=== PATIENT | male | born 1940 | race Caucasian/White ===

== ENCOUNTER 2017-12-22 01:14 | Inpatient (IN) | payer MEDICARE, OTHER ==
[2017-12-22 02:02] LABS: ADD MAN DIFF? NO
[2017-12-22 02:05] LABS: ABNORMAL IP MESSAGE 1; BASOPHILS % 0.1 % (0.0-2.0); EOSINOPHILS % 0.1 % (0.0-7.0); HEMOGLOBIN 8.7 g/dl (14.0-18.0); LYMPHOCYTES # 1.3 10^3/ul (0.8-2.9); LYMPHOCYTES % 16.5 % (15.0-51.0); MEAN CORPUSCULAR HEMOGLOBIN 28.9 pg (29.0-33.0); MEAN CORPUSCULAR HGB CONC 34.8 g/dl (32.0-37.0); MEAN CORPUSCULAR VOLUME 83.1 fl (82.0-101.0); MONOCYTES % 13.1 % (0.0-11.0); NEUTROPHIL # 5.1 10^3/ul (1.6-7.5); NEUTROPHILS % 66.9 % (39.0-77.0); PLATELET COUNT 64 10^3/UL (140-415); POSITIVE DIFF @See below; RED BLOOD COUNT 3.01 10^6/ul (4.70-6.10)
[2017-12-22 02:05] LABS: WHITE BLOOD COUNT 7.6 10^3/ul (4.8-10.8)
[2017-12-22 02:20] LABS: ALANINE AMINOTRANSFERASE 11 IU/L (13-69); ALBUMIN 4.3 g/dl (3.3-4.9); ALBUMIN/GLOBULIN RATIO 1.48; ALKALINE PHOSPHATASE 33 IU/L (42-121); ANION GAP 15 (8-16); ASPARTATE AMINO TRANSFERASE 17 IU/L (15-46); BILIRUBIN,INDIRECT 0.2 mg/dl (0-1.1); BILIRUBIN,TOTAL 0.2 mg/dl (0.2-1.3); BLOOD UREA NITROGEN 32 mg/dl (7-20); CALCIUM 9.9 mg/dl (8.4-10.2); CARBON DIOXIDE 21 mmol/L (21-31); CHLORIDE 107 mmol/L (97-110); CREATININE 3.43 mg/dl (0.61-1.24); GLUCOSE 160 mg/dl (70-220); LIPASE 77 U/L (23-300); POTASSIUM 3.3 mmol/L (3.5-5.1); SODIUM 140 mmol/L (135-144); TOTAL PROTEIN 7.2 g/dl (6.1-8.1)
[2017-12-22 02:23] LABS: INR 1.24; PARTIAL THROMBOPLASTIN TIME 31.5 Sec (25.0-35.0); PROTIME 15.8 Sec (11.9-14.9); PT RATIO 1.2
[2017-12-22 02:32] LABS: B-TYPE NATRIURETIC PEPTIDE 5380 PG/ML (0-450); TROPONIN-I 0.058 ng/ml (0.000-0.120)
[2017-12-22] MEDS: ACETAMINOPHEN 325 MG TAB PO (03:09)
[2017-12-22] MEDS: SOD CHLORIDE 0.9% 1,000 ML IV ×2 (06:29→19:49)
[2017-12-22] MEDS ORDERED: NACL 0.9% 3 ML SYG IV (06:30)
[2017-12-22] MEDS ORDERED: BISACODYL (EC) 5 MG TAB PO (06:30)
[2017-12-22] MEDS ORDERED: ONDANSETRON 4 MG INJ IV (06:30)
[2017-12-22] MEDS ORDERED: DOCUSATE SODIUM 100 MG CAP PO (06:30)
[2017-12-22] MEDS ORDERED: DEXTROSE 50% 50 ML SYRINGE IV (07:00)
[2017-12-22] MEDS ORDERED: GLUCOSE GEL 15 GRAM TUBE PO ×2 (07:00)
[2017-12-22] MEDS ORDERED: GLUCAGON 1 MG INJ IM (07:00)
[2017-12-22 07:54] LABS: HEMOGLOBIN A1C 7.5 % (0-5.9)
[2017-12-22 08:03] LABS: CREATINE KINASE 136 IU/L (23-200)
[2017-12-22 08:06] LABS: CHOL/HDL RATIO 3.8 RATIO; CHOLESTEROL 127 mg/dl (100-200); HDL CHOLESTEROL 33 mg/dl (31-75); LDL CHOLESTEROL,CALCULATED 59 mg/dl; TRIGLYCERIDES 175 mg/dl (0-149)
[2017-12-22 08:06] LABS: MAGNESIUM 1.5 mg/dl (1.7-2.5)
[2017-12-22] MEDS: CALCITRIOL 0.25 MCG CAP PO (08:12)
[2017-12-22] MEDS: ISOSORBIDE MONONITRATE(SR)60 MG TAB PO (08:12)
[2017-12-22 08:13] LABS: CK INDEX 4.6; CK-MB 6.25 ng/ml (0.0-2.4)
[2017-12-22] MEDS: FENOFIBRATE 145 MG TAB PO (08:13)
[2017-12-22] MEDS: ASPIRIN (EC) 81 MG TAB PO (08:13)
[2017-12-22] MEDS: FINASTERIDE 5 MG TAB PO (08:13)
[2017-12-22] MEDS: FERROUS SULFATE (EC) 325 MG TAB PO ×2 (08:13→23:25)
[2017-12-22] MEDS: RANOLAZINE (SR) 500 MG TAB PO ×2 (08:13→23:26)
[2017-12-22] MEDS: DOCUSATE SODIUM 100 MG CAP PO ×2 (08:13→23:25)
[2017-12-22] MEDS: INSULIN ASPART [NOVOLOG] 3 ML PEN SC ×4 (08:14→23:32)
[2017-12-22] MEDS: EZETIMIBE 10 MG TAB PO (08:14)
[2017-12-22] MEDS: METOPROLOL 25 MG TAB PO ×2 (08:14→21:00)
[2017-12-22] MEDS: AMLODIPINE 5 MG TAB PO ×2 (08:14→23:26)
[2017-12-22] MEDS: PANTOPRAZOLE (EC) 40 MG TAB PO (08:14)
[2017-12-22] MEDS ORDERED: NON-FORMULARY/PATIENT OWN MED (Esomeprazole Mag Trihydrate (Nexium) 40 MG) PO (09:00)
[2017-12-22 10:57] LABS: ADD MAN DIFF? NO
[2017-12-22] MEDS: POTASSIUM CHLORIDE (SR) 20 MEQ TAB PO ×2 (10:58→13:36)
[2017-12-22] MEDS ORDERED: HEPARIN 1000 UNITS/ML 10 ML INJ IV (11:00)
[2017-12-22 11:03] LABS: ABNORMAL IP MESSAGE 1; BASOPHILS % 0.2 % (0.0-2.0); HEMATOCRIT 25.9 % (42.0-52.0); IMMATURE GRANS #M 0.39 10^3/ul; IMMATURE GRANS % (M) 4.4 %; LYMPHOCYTES # 1.4 10^3/ul (0.8-2.9); LYMPHOCYTES % 16.1 % (15.0-51.0); MEAN CORPUSCULAR HEMOGLOBIN 28.9 pg (29.0-33.0); MEAN CORPUSCULAR HGB CONC 34.7 g/dl (32.0-37.0); MEAN CORPUSCULAR VOLUME 83.3 fl (82.0-101.0); MONOCYTE # 1.2 10^3/ul (0.3-0.9); MONOCYTES % 12.9 % (0.0-11.0); NEUTROPHIL # 5.9 10^3/ul (1.6-7.5); NEUTROPHILS % 66.4 % (39.0-77.0); POSITIVE DIFF @See below; RED BLOOD COUNT 3.11 10^6/ul (4.70-6.10); RED CELL DISTRIBUTION WIDTH 23.4 % (11.5-14.5)
[2017-12-22 11:03] LABS: WHITE BLOOD COUNT 8.9 10^3/ul (4.8-10.8)
[2017-12-22 11:05] LABS: PLATELET COUNT 53 10^3/UL (140-415)
[2017-12-22] MEDS: morphine 2 MG INJ IV (11:14)
[2017-12-22] MEDS: HEPARIN 1000 UNITS/ML 10 ML INJ IV (11:16)
[2017-12-22 11:21] LABS: CREATINE KINASE 223 IU/L (23-200)
[2017-12-22] MEDS: HEPARIN 25000 UNITS/250 ML 250 ML IV (11:21)
[2017-12-22 11:23] LABS: INR 1.17; PROTIME 15.1 Sec (11.9-14.9); PT RATIO 1.2
[2017-12-22 11:24] LABS: PARTIAL THROMBOPLASTIN TIME 31.1 Sec (25.0-35.0)
[2017-12-22 11:34] LABS: CK INDEX 6.3
[2017-12-22] MEDS: MAGNESIUM SULFATE 3 GM in DEXTROSE 5% 100 ML IVPB (12:23)
[2017-12-22 18:21] LABS: CREATINE KINASE 243 IU/L (23-200)
[2017-12-22 18:31] LABS: PARTIAL THROMBOPLASTIN TIME 145.9 Sec (25.0-35.0)
[2017-12-22 18:33] LABS: CK INDEX 7.2
[2017-12-22 22:44] LABS: CREATINE KINASE 249 IU/L (23-200)
[2017-12-22 22:58] LABS: CK INDEX 5.8
[2017-12-22] MEDS: TAMSULOSIN (SR) 0.4 MG CAP PO (23:25)
[2017-12-22] MEDS: ATORVASTATIN 40 MG TAB PO (23:25)
[2017-12-23] MEDS: INSULIN ASPART [NOVOLOG] 3 ML PEN SC ×6 (01:00→20:52)
[2017-12-23] MEDS: hydrALAzine 20 MG INJ IV (01:10)
[2017-12-23 01:29] LABS: PARTIAL THROMBOPLASTIN TIME 48.6 Sec (25.0-35.0)
[2017-12-23] MEDS ORDERED: ACCU-CHEK XX (02:00)
[2017-12-23] MEDS: morphine LIQ (10 MG/5 ML) CUP PO ×2 (04:44→15:33)
[2017-12-23] MEDS: NITROGLYCERIN (SL) 0.4 MG TAB SL (05:04)
[2017-12-23] MEDS: PANTOPRAZOLE (EC) 40 MG TAB PO (06:00)
[2017-12-23] MEDS: SOD CHLORIDE 0.9% 1,000 ML IV (06:48)
[2017-12-23] MEDS: RANOLAZINE (SR) 500 MG TAB PO ×2 (08:25→20:18)
[2017-12-23] MEDS: AMLODIPINE 5 MG TAB PO ×2 (08:25→20:19)
[2017-12-23] MEDS: EZETIMIBE 10 MG TAB PO (08:25)
[2017-12-23] MEDS: METOPROLOL 25 MG TAB PO ×2 (08:26→21:00)
[2017-12-23] MEDS: ISOSORBIDE MONONITRATE(SR)60 MG TAB PO (08:26)
[2017-12-23] MEDS: FERROUS SULFATE (EC) 325 MG TAB PO ×2 (08:26→20:19)
[2017-12-23] MEDS: FINASTERIDE 5 MG TAB PO (08:26)
[2017-12-23] MEDS: DOCUSATE SODIUM 100 MG CAP PO ×2 (08:27→20:19)
[2017-12-23] MEDS: ASPIRIN (EC) 81 MG TAB PO (08:27)
[2017-12-23] MEDS: CALCITRIOL 0.25 MCG CAP PO (08:27)
[2017-12-23 09:19] LABS: ADD MAN DIFF? NO
[2017-12-23 09:30] LABS: WHITE BLOOD COUNT 8.7 10^3/ul (4.8-10.8)
[2017-12-23 09:30] LABS: ABNORMAL IP MESSAGE 1; BASOPHILS % 0.3 % (0.0-2.0); EOSINOPHILS % 0.1 % (0.0-7.0); HEMATOCRIT 28.4 % (42.0-52.0); HEMOGLOBIN 9.6 g/dl (14.0-18.0); IMMATURE GRANS #M 0.28 10^3/ul; IMMATURE GRANS % (M) 3.2 %; LYMPHOCYTES # 1.6 10^3/ul (0.8-2.9); LYMPHOCYTES % 18.6 % (15.0-51.0); MEAN CORPUSCULAR HEMOGLOBIN 28.3 pg (29.0-33.0); MEAN CORPUSCULAR HGB CONC 33.8 g/dl (32.0-37.0); MEAN CORPUSCULAR VOLUME 83.8 fl (82.0-101.0); MONOCYTE # 1.3 10^3/ul (0.3-0.9); MONOCYTES % 15.1 % (0.0-11.0); NEUTROPHIL # 5.4 10^3/ul (1.6-7.5); NEUTROPHILS % 62.7 % (39.0-77.0); PLATELET COUNT 63 10^3/UL (140-415); POSITIVE DIFF @See below; RED BLOOD COUNT 3.39 10^6/ul (4.70-6.10); RED CELL DISTRIBUTION WIDTH 23.5 % (11.5-14.5)
[2017-12-23 09:54] LABS: PARTIAL THROMBOPLASTIN TIME 64.2 Sec (25.0-35.0)
[2017-12-23 09:59] LABS: ANION GAP 16 (8-16); BLOOD UREA NITROGEN 29 mg/dl (7-20); CALCIUM 9.8 mg/dl (8.4-10.2); CARBON DIOXIDE 20 mmol/L (21-31); CHLORIDE 111 mmol/L (97-110); GLUCOSE 96 mg/dl (70-220); POTASSIUM 4.1 mmol/L (3.5-5.1); SODIUM 143 mmol/L (135-144)
[2017-12-23] MEDS: HEPARIN 25000 UNITS/250 ML 250 ML IV ×2 (10:29→17:22)
[2017-12-23 10:43] LABS: MAGNESIUM 2.1 mg/dl (1.7-2.5)
[2017-12-23 17:12] LABS: PARTIAL THROMBOPLASTIN TIME 55.7 Sec (25.0-35.0)
[2017-12-23] MEDS: TAMSULOSIN (SR) 0.4 MG CAP PO (20:18)
[2017-12-23] MEDS: ATORVASTATIN 40 MG TAB PO (20:19)
[2017-12-23 23:45] LABS: PARTIAL THROMBOPLASTIN TIME 58.1 Sec (25.0-35.0)
[2017-12-24] MEDS: INSULIN ASPART [NOVOLOG] 3 ML PEN SC ×6 (01:00→20:48)
[2017-12-24] MEDS: HALOPERIDOL 5 MG INJ IV (02:47)
[2017-12-24] MEDS: PANTOPRAZOLE (EC) 40 MG TAB PO (05:48)
[2017-12-24 07:11] LABS: ADD MAN DIFF? NO
[2017-12-24 07:14] LABS: WHITE BLOOD COUNT 7.9 10^3/ul (4.8-10.8)
[2017-12-24 07:14] LABS: ABNORMAL IP MESSAGE 1; BASOPHILS % 0.3 % (0.0-2.0); EOSINOPHILS % 0.1 % (0.0-7.0); HEMATOCRIT 26.7 % (42.0-52.0); HEMOGLOBIN 9.1 g/dl (14.0-18.0); IMMATURE GRANS #M 0.19 10^3/ul; IMMATURE GRANS % (M) 2.4 %; LYMPHOCYTES # 1.5 10^3/ul (0.8-2.9); LYMPHOCYTES % 18.9 % (15.0-51.0); MEAN CORPUSCULAR HEMOGLOBIN 28.8 pg (29.0-33.0); MEAN CORPUSCULAR HGB CONC 34.1 g/dl (32.0-37.0); MEAN CORPUSCULAR VOLUME 84.5 fl (82.0-101.0); MONOCYTE # 1.4 10^3/ul (0.3-0.9); MONOCYTES % 17.5 % (0.0-11.0); NEUTROPHIL # 4.8 10^3/ul (1.6-7.5); NEUTROPHILS % 60.8 % (39.0-77.0); PLATELET COUNT 60 10^3/UL (140-415); POSITIVE DIFF @See below; RED BLOOD COUNT 3.16 10^6/ul (4.70-6.10); RED CELL DISTRIBUTION WIDTH 23.2 % (11.5-14.5)
[2017-12-24 07:29] LABS: ANION GAP 15 (8-16); BLOOD UREA NITROGEN 33 mg/dl (7-20); CALCIUM 9.7 mg/dl (8.4-10.2); CARBON DIOXIDE 22 mmol/L (21-31); CHLORIDE 105 mmol/L (97-110); GLUCOSE 108 mg/dl (70-220); POTASSIUM 4.6 mmol/L (3.5-5.1); SODIUM 137 mmol/L (135-144)
[2017-12-24 07:49] LABS: PARTIAL THROMBOPLASTIN TIME 88.9 Sec (25.0-35.0)
[2017-12-24] MEDS: HEPARIN 25000 UNITS/250 ML 250 ML IV (07:56)
[2017-12-24] MEDS: FINASTERIDE 5 MG TAB PO (08:38)
[2017-12-24] MEDS: METOPROLOL 25 MG TAB PO ×2 (08:38→20:47)
[2017-12-24] MEDS: AMLODIPINE 5 MG TAB PO ×2 (08:38→20:48)
[2017-12-24] MEDS: ISOSORBIDE MONONITRATE(SR)60 MG TAB PO (08:39)
[2017-12-24] MEDS: EZETIMIBE 10 MG TAB PO (08:39)
[2017-12-24] MEDS: DOCUSATE SODIUM 100 MG CAP PO ×2 (08:39→20:48)
[2017-12-24] MEDS: FERROUS SULFATE (EC) 325 MG TAB PO ×2 (08:39→20:47)
[2017-12-24] MEDS: RANOLAZINE (SR) 500 MG TAB PO ×2 (08:39→20:47)
[2017-12-24] MEDS: CALCITRIOL 0.25 MCG CAP PO (08:39)
[2017-12-24] MEDS: ASPIRIN (EC) 81 MG TAB PO (08:41)
[2017-12-24] MEDS: ACETAMINOPHEN 325 MG TAB PO (12:03)
[2017-12-24] MEDS: morphine LIQ (10 MG/5 ML) CUP PO (15:14)
[2017-12-24 15:44] LABS: PARTIAL THROMBOPLASTIN TIME 32.6 Sec (25.0-35.0)
[2017-12-24] MEDS: ATORVASTATIN 40 MG TAB PO (20:48)
[2017-12-24] MEDS: TAMSULOSIN (SR) 0.4 MG CAP PO (20:48)
[2017-12-24] MEDS: QUETIAPINE 25 MG TAB PO (23:18)
[2017-12-24] MEDS ORDERED: QUETIAPINE 25 MG TAB GTB (23:30)
[2017-12-25] MEDS: INSULIN ASPART [NOVOLOG] 3 ML PEN SC ×6 (01:00→20:19)
[2017-12-25] MEDS: SOD CHLORIDE 0.9% 1,000 ML IV ×3 (01:02→22:54)
[2017-12-25] MEDS: HALOPERIDOL 5 MG INJ IV ×2 (04:35→05:37)
[2017-12-25] MEDS: PANTOPRAZOLE (EC) 40 MG TAB PO (06:00)
[2017-12-25] MEDS: EZETIMIBE 10 MG TAB PO (08:24)
[2017-12-25] MEDS: AMLODIPINE 5 MG TAB PO ×2 (08:24→20:41)
[2017-12-25] MEDS: FINASTERIDE 5 MG TAB PO (08:24)
[2017-12-25] MEDS: ISOSORBIDE MONONITRATE(SR)60 MG TAB PO (08:24)
[2017-12-25] MEDS: DOCUSATE SODIUM 100 MG CAP PO ×2 (08:24→20:41)
[2017-12-25] MEDS: FERROUS SULFATE (EC) 325 MG TAB PO ×2 (08:25→20:41)
[2017-12-25] MEDS: ASPIRIN (EC) 81 MG TAB PO (08:25)
[2017-12-25] MEDS: CALCITRIOL 0.25 MCG CAP PO (08:25)
[2017-12-25] MEDS: METOPROLOL 25 MG TAB PO ×2 (08:25→20:42)
[2017-12-25] MEDS: RANOLAZINE (SR) 500 MG TAB PO ×2 (08:25→20:41)
[2017-12-25 10:32] LABS: ADD MAN DIFF? NO
[2017-12-25 10:35] LABS: WHITE BLOOD COUNT 13.8 10^3/ul (4.8-10.8)
[2017-12-25 10:35] LABS: ABNORMAL IP MESSAGE 1; BASOPHILS % 0.1 % (0.0-2.0); EOSINOPHILS % 0.1 % (0.0-7.0); HEMATOCRIT 25.6 % (42.0-52.0); HEMOGLOBIN 8.7 g/dl (14.0-18.0); IMMATURE GRANS #M 0.56 10^3/ul; IMMATURE GRANS % (M) 4.1 %; LYMPHOCYTES # 1.3 10^3/ul (0.8-2.9); LYMPHOCYTES % 9.2 % (15.0-51.0); MEAN CORPUSCULAR HEMOGLOBIN 28.6 pg (29.0-33.0); MEAN CORPUSCULAR VOLUME 84.2 fl (82.0-101.0); MONOCYTES % 21.8 % (0.0-11.0); NEUTROPHIL # 8.9 10^3/ul (1.6-7.5); NEUTROPHILS % 64.7 % (39.0-77.0); PLATELET COUNT 52 10^3/UL (140-415); POSITIVE DIFF @See below; RED BLOOD COUNT 3.04 10^6/ul (4.70-6.10); RED CELL DISTRIBUTION WIDTH 22.8 % (11.5-14.5)
[2017-12-25 11:00] LABS: MAGNESIUM 1.8 mg/dl (1.7-2.5)
[2017-12-25 11:00] LABS: ANION GAP 18 (8-16); BLOOD UREA NITROGEN 33 mg/dl (7-20); CALCIUM 10.1 mg/dl (8.4-10.2); CARBON DIOXIDE 19 mmol/L (21-31); CHLORIDE 105 mmol/L (97-110); CREATININE 3.27 mg/dl (0.61-1.24); GLUCOSE 88 mg/dl (70-220); POTASSIUM 4.2 mmol/L (3.5-5.1); SODIUM 138 mmol/L (135-144)
[2017-12-25] MEDS: REGADENOSON 0.4 MG/5 ML SYG (11:48)
[2017-12-25] MEDS: LORAZEPAM 2 MG INJ IV (17:34)
[2017-12-25] MEDS: ATORVASTATIN 40 MG TAB PO (20:40)
[2017-12-25] MEDS: TAMSULOSIN (SR) 0.4 MG CAP PO (20:40)
[2017-12-25] MEDS: QUETIAPINE 25 MG TAB PO (20:41)
[2017-12-25] MEDS ORDERED: QUETIAPINE 25 MG TAB GTB (21:00)
[2017-12-26] MEDS: INSULIN ASPART [NOVOLOG] 3 ML PEN SC ×6 (01:00→21:16)
[2017-12-26] MEDS: SOD CHLORIDE 0.9% 1,000 ML IV (02:39)
[2017-12-26] MEDS: GLUCOSE GEL 15 GRAM TUBE BUCCAL (05:37)
[2017-12-26] MEDS: DEXTROSE 50% 50 ML SYRINGE IV (05:50)
[2017-12-26] MEDS: PANTOPRAZOLE (EC) 40 MG TAB PO (05:56)
[2017-12-26] MEDS: DEXTROSE 5%-0.9% NACL 1,000 ML IV ×2 (07:00→20:26)
[2017-12-26] MEDS: FERROUS SULFATE (EC) 325 MG TAB PO ×2 (08:23→21:12)
[2017-12-26] MEDS: FINASTERIDE 5 MG TAB PO (08:23)
[2017-12-26] MEDS: DOCUSATE SODIUM 100 MG CAP PO ×2 (08:23→21:11)
[2017-12-26] MEDS: CALCITRIOL 0.25 MCG CAP PO (08:23)
[2017-12-26] MEDS: ASPIRIN (EC) 81 MG TAB PO (08:24)
[2017-12-26] MEDS: EZETIMIBE 10 MG TAB PO (08:24)
[2017-12-26] MEDS: RANOLAZINE (SR) 500 MG TAB PO ×2 (08:24→21:12)
[2017-12-26] MEDS: METOPROLOL 25 MG TAB PO ×2 (08:25→21:13)
[2017-12-26] MEDS: AMLODIPINE 5 MG TAB PO ×2 (08:25→21:12)
[2017-12-26] MEDS: ISOSORBIDE MONONITRATE(SR)60 MG TAB PO (08:26)
[2017-12-26] MEDS: LORAZEPAM 2 MG INJ IV (09:16)
[2017-12-26 09:33] LABS: ADD MAN DIFF? NO
[2017-12-26 09:39] LABS: ABNORMAL IP MESSAGE 1; BASOPHILS % 0.1 % (0.0-2.0); EOSINOPHILS % 0.1 % (0.0-7.0); HEMATOCRIT 24.5 % (42.0-52.0); HEMOGLOBIN 8.3 g/dl (14.0-18.0); IMMATURE GRANS #M 0.45 10^3/ul; IMMATURE GRANS % (M) 2.7 %; LYMPHOCYTES % 6.2 % (15.0-51.0); MEAN CORPUSCULAR HEMOGLOBIN 28.8 pg (29.0-33.0); MEAN CORPUSCULAR HGB CONC 33.9 g/dl (32.0-37.0); MEAN CORPUSCULAR VOLUME 85.1 fl (82.0-101.0); MONOCYTE # 4.8 10^3/ul (0.3-0.9); MONOCYTES % 28.6 % (0.0-11.0); NEUTROPHIL # 10.4 10^3/ul (1.6-7.5); NEUTROPHILS % 62.3 % (39.0-77.0); POSITIVE DIFF @See below; RED BLOOD COUNT 2.88 10^6/ul (4.70-6.10)
[2017-12-26 09:39] LABS: WHITE BLOOD COUNT 16.6 10^3/ul (4.8-10.8)
[2017-12-26 09:44] LABS: PLATELET COUNT 52 10^3/UL (140-415)
[2017-12-26 10:03] LABS: ANION GAP 15 (8-16); BLOOD UREA NITROGEN 42 mg/dl (7-20); CALCIUM 9.7 mg/dl (8.4-10.2); CARBON DIOXIDE 20 mmol/L (21-31); CHLORIDE 106 mmol/L (97-110); GLUCOSE 117 mg/dl (70-220); MAGNESIUM 1.9 mg/dl (1.7-2.5); POTASSIUM 4.2 mmol/L (3.5-5.1); SODIUM 137 mmol/L (135-144)
[2017-12-26 12:50] LABS: ADD UMIC YES; UR ASCORBIC ACID NEGATIVE (NEGATIVE); UR BACTERIA FEW /HPF (NONE SEEN); UR BILIRUBIN (Dip) NEGATIVE (NEGATIVE); UR BLOOD (Dip) 1+ mg/dL (NEGATIVE); UR CLARITY CLEAR (CLEAR); UR COLOR YELLOW (YELLOW); UR GLUCOSE (Dip) NEGATIVE (NEGATIVE); UR KETONES (Dip) NEGATIVE (NEGATIVE); UR LEUKOCYTE ESTERASE (Dip) NEGATIVE Leu/ul (NEGATIVE); UR NITRITE (Dip) NEGATIVE (NEGATIVE); UR RBC 0 /HPF (0-5); UR SPECIFIC GRAVITY (Dip) 1.006 (1.003-1.030); UR TOTAL PROTEIN (Dip) NEGATIVE (NEGATIVE); UR UROBILINOGEN (Dip) NEGATIVE (NEGATIVE); UR WBC 0 /HPF (0-5)
[2017-12-26] MEDS: ATORVASTATIN 40 MG TAB PO (21:11)
[2017-12-26] MEDS: QUETIAPINE 25 MG TAB PO (21:12)
[2017-12-26] MEDS: TAMSULOSIN (SR) 0.4 MG CAP PO (21:12)
[2017-12-27] MEDS: INSULIN ASPART [NOVOLOG] 3 ML PEN SC ×6 (01:29→22:23)
[2017-12-27] MEDS: morphine LIQ (10 MG/5 ML) CUP PO (03:53)
[2017-12-27] MEDS: PANTOPRAZOLE (EC) 40 MG TAB PO (06:10)
[2017-12-27 06:46] LABS: ADD MAN DIFF? NO
[2017-12-27 06:52] LABS: WHITE BLOOD COUNT 18.3 10^3/ul (4.8-10.8)
[2017-12-27 06:52] LABS: ABNORMAL IP MESSAGE 1; BASOPHILS % 0.1 % (0.0-2.0); HEMATOCRIT 21.5 % (42.0-52.0); HEMOGLOBIN 7.1 g/dl (14.0-18.0); IMMATURE GRANS #M 0.32 10^3/ul; IMMATURE GRANS % (M) 1.7 %; LYMPHOCYTES # 1.2 10^3/ul (0.8-2.9); LYMPHOCYTES % 6.3 % (15.0-51.0); MEAN CORPUSCULAR HEMOGLOBIN 28.3 pg (29.0-33.0); MEAN CORPUSCULAR VOLUME 85.7 fl (82.0-101.0); MONOCYTE # 3.8 10^3/ul (0.3-0.9); MONOCYTES % 20.5 % (0.0-11.0); NEUTROPHIL # 13.1 10^3/ul (1.6-7.5); NEUTROPHILS % 71.4 % (39.0-77.0); POSITIVE DIFF @See below; RED BLOOD COUNT 2.51 10^6/ul (4.70-6.10); RED CELL DISTRIBUTION WIDTH 23.5 % (11.5-14.5)
[2017-12-27 06:56] LABS: PLATELET COUNT 46 10^3/UL (140-415)
[2017-12-27 07:29] LABS: ALANINE AMINOTRANSFERASE 27 IU/L (13-69); ALBUMIN 3.2 g/dl (3.3-4.9); ALBUMIN/GLOBULIN RATIO 1.18; ALKALINE PHOSPHATASE 29 IU/L (42-121); ANION GAP 20 (8-16); ASPARTATE AMINO TRANSFERASE 43 IU/L (15-46); BILIRUBIN,INDIRECT 0.3 mg/dl (0-1.1); BILIRUBIN,TOTAL 0.3 mg/dl (0.2-1.3); BLOOD UREA NITROGEN 44 mg/dl (7-20); CALCIUM 9.7 mg/dl (8.4-10.2); CARBON DIOXIDE 16 mmol/L (21-31); CHLORIDE 107 mmol/L (97-110); CREATININE 4.15 mg/dl (0.61-1.24); GLUCOSE 184 mg/dl (70-220); POTASSIUM 4.5 mmol/L (3.5-5.1); SODIUM 138 mmol/L (135-144); TOTAL PROTEIN 5.9 g/dl (6.1-8.1)
[2017-12-27 07:39] LABS: PHOSPHORUS 5.4 mg/dl (2.5-4.9)
[2017-12-27 07:39] LABS: MAGNESIUM 1.7 mg/dl (1.7-2.5)
[2017-12-27] MEDS: CALCITRIOL 0.25 MCG CAP PO (08:34)
[2017-12-27] MEDS: ASPIRIN (EC) 81 MG TAB PO (08:34)
[2017-12-27] MEDS: FINASTERIDE 5 MG TAB PO (08:34)
[2017-12-27] MEDS: FERROUS SULFATE (EC) 325 MG TAB PO ×2 (08:34→21:00)
[2017-12-27] MEDS: DOCUSATE SODIUM 100 MG CAP PO ×2 (08:34→21:00)
[2017-12-27] MEDS: EZETIMIBE 10 MG TAB PO (08:35)
[2017-12-27] MEDS: AMLODIPINE 5 MG TAB PO ×2 (08:35→21:00)
[2017-12-27] MEDS: METOPROLOL 25 MG TAB PO ×2 (08:35→21:00)
[2017-12-27] MEDS: RANOLAZINE (SR) 500 MG TAB PO ×2 (08:36→21:00)
[2017-12-27] MEDS: ISOSORBIDE MONONITRATE(SR)60 MG TAB PO (08:36)
[2017-12-27] MEDS: DEXTROSE 5%-0.9% NACL 1,000 ML IV ×2 (08:58→21:35)
[2017-12-27 11:25] LABS: URIC ACID 8.1 mg/dl (3.1-7.9)
[2017-12-27 11:26] LABS: LACTIC ACID 1.7 mmol/L (0.5-2.0)
[2017-12-27 11:47] LABS: CREATINE KINASE 757 IU/L (23-200)
[2017-12-27 11:47] LABS: LACTATE DEHYDROGENASE 804 IU/L (313-618)
[2017-12-27] MEDS: LORAZEPAM 2 MG INJ IV ×2 (14:09→22:21)
[2017-12-27] MEDS: QUETIAPINE 25 MG TAB PO (21:00)
[2017-12-27] MEDS: ATORVASTATIN 40 MG TAB PO (21:00)
[2017-12-27] MEDS: TAMSULOSIN (SR) 0.4 MG CAP PO (21:00)
[2017-12-27] MEDS ORDERED: DIMETHICONE STICK TOP (22:30)
[2017-12-27 22:57] LABS: AADO2 Arterial 620.5 mmHg (7.0-24.0); Allen Test ACCEPTAB; Arterial Blood Gas Oxygen Sat 85.2 mmHG (95.0-100.0); Arterial COHb 0.3 % (0.0-3.0); Arterial Fraction of Oxyhgb 84.4 % (93.0-99.0); Arterial HCO3 13.9 mmol/L (22.0-26.0); Arterial MetHb 0.6 % (0.0-1.5); Arterial Total Hemglobin 7.7 g/dl (12.0-18.0); Arterial pCO2 31.7 mmhg (35-45); MODE MASK - NRB; Site Right Radial
[2017-12-28] MEDS: INSULIN ASPART [NOVOLOG] 3 ML PEN SC ×2 (01:13→05:00)
[2017-12-28] MEDS: PANTOPRAZOLE (EC) 40 MG TAB PO (05:48)
== END 2017-12-28 05:57 | disposition expired ==
LOC: TEL 12-23 14:19 → 2NE 12-28 → TEL 12-26 14:38 → E/R 01:14 → TEL 04:45
DX: I21.4 Non-ST elevation (NSTEMI) myocardial infarction (principal); N17.9 Acute kidney failure, unspecified; F05 Delirium due to known physiological condition; N18.4 Chronic kidney disease, stage 4 (severe); E11.22 Type 2 diabetes mellitus with diabetic chronic kidney disease; D69.6 Thrombocytopenia, unspecified; D63.1 Anemia in chronic kidney disease; F01.50 Vascular dementia, unspecified severity, without behavioral disturbance, psychotic disturbance, mood disturbance, and anxiety; I25.10 Atherosclerotic heart disease of native coronary artery without angina pectoris; E78.5 Hyperlipidemia, unspecified; N40.0 Benign prostatic hyperplasia without lower urinary tract symptoms; I12.9 Hypertensive chronic kidney disease with stage 1 through stage 4 chronic kidney disease, or unspecified chronic kidney disease; K21.9 Gastro-esophageal reflux disease without esophagitis; D46.9 Myelodysplastic syndrome, unspecified; E87.6 Hypokalemia; Z66 Do not resuscitate; Z79.4 Long term (current) use of insulin; Z95.5 Presence of coronary angioplasty implant and graft; Z86.73 Personal history of transient ischemic attack (TIA), and cerebral infarction without residual deficits; Z87.891 Personal history of nicotine dependence; Z79.82 Long term (current) use of aspirin
CPT/HCPCS: 36415; 36600; 71045; 76775; 78452; 80048; 80053; 80061; 81001; 82550; 82553; 82803; 82962; 83036; 83605; 83615; 83690; 83735; 83880; 84100; 84443; 84484; 84560; 85025; 85610; 85730; 87086; 93005; 93017; 93306; 99285-25